=== PATIENT | male | born 1990 | race Caucasian/White ===

== ENCOUNTER 2016-06-29 10:19 | Emergency (ER) | payer BC ==
[2016-06-29] MEDS ORDERED: ONDANSETRON 4 MG/2ML 2 ML VIAL ONE (10:58)
[2016-06-29] MEDS ORDERED: PANTOPRAZOLE SODIUM 40 MG VIAL IV ONE (10:58)
[2016-06-29] MEDS ORDERED: LACTATED RINGERS 1,000 ML ONE (10:58)
[2016-06-29 11:05] LABS: ABSOLUTE NEUTROPHIL COUNT 10.7 K/mm3 (1.8-7.7); BASO % 0.2 % (0.2-1.0); HEMATOCRIT 41.1 % (32.0-52.0); HEMOGLOBIN 13.8 gm/l (14.0-18.0); IMM NEUT # 0.2 K/mm3 (0-0.2); IMM NEUT% 1.5 % (0-1); LYMPH # 0.6 (1.0-4.8); LYMPH % 4.6 % (15-45); MEAN CORPUSCULAR HEMOGLOBIN 31.2 pg (27.0-31.0); MEAN CORPUSCULAR HGB CONC 33.6 g/dl (33.0-37.0); MEAN PLATELET VOLUME 10.1 fl (7.4-10.4); MONO # 1.1 (0.0-0.8); MONO % 8.6 % (4-12); NEUT % 85.1 % (43-75); PLATELET COUNT 172 K/mm3 (130-400); RED CELL DISTRIBUTION WIDTH 11.9 % (11.5-14.5)
[2016-06-29 11:24] LABS: SPECIFIC GRAVITY 1.015 (1.001-1.030); URINE BILIRUBIN NEGATIVE (NEGATIVE); URINE BLOOD NEGATIVE (NEGATIVE); URINE GLUCOSE (UA) NEGATIVE (NEGATIVE); URINE LEUKOCYTE ESTERASE NEGATIVE (NEGATIVE); URINE NITRITE NEGATIVE (NEGATIVE); URINE PROTEIN TRACE (NEGATIVE); URINE UROBILINOGEN NORMAL (0-1 mg/dl)
[2016-06-29 11:25] LABS: URINE APPEARANCE CLEAR; URINE COLOR YELLOW
[2016-06-29 11:26] LABS: ALB/GLOB RATIO 1.3 (>1.0); ALBUMIN 4.3 gm/dL (3.5-5.7); CALCIUM 9.6 mg/dL (8.6-10.3); MAGNESIUM 1.6 mg/dL (1.9-2.7)
[2016-06-29] MEDS ORDERED: MAALOX/LIDO2%VISC/SIMETHICONE 40 ML BOT ONE (11:51)
[2016-06-29] MEDS ORDERED: MAGNESIUM SULFATE 2 G/50 ML 50 ML IV ONE (11:53)
[2016-06-29] MEDS ORDERED: ACETAMINOPHEN 500 MG TABLET ONE (12:49)
[2016-06-29] MEDS ORDERED: PENICILLIN G BENZATHINE 1.2 MMU/2 ML SYRINGE IM ONE (13:26)
== END 2016-06-29 13:50 | disposition home or self-care (01) ==
LOC: ED 10:19
DX: F10.20 Alcohol dependence, uncomplicated (principal); R11.2 Nausea with vomiting, unspecified; R10.9 Unspecified abdominal pain; J02.0 Streptococcal pharyngitis; F17.210 Nicotine dependence, cigarettes, uncomplicated
CPT/HCPCS: 83690; 85025; 80053; 83735; 81003; 87880; 96375 ×2; 99284 ×2; 96372; 96365; A9270 ×2; C9113; J2405; J7120; J3475; J0561